=== PATIENT | male | born 1985 | race Caucasian/White ===

== ENCOUNTER 2021-08-18 09:29 | Outpatient (CLI) | payer OTHER, SELFPAY ==
--- NOTE | ~2021-08-18 | MR_ITS ---
EXAMINATION: MR ankle LT wo con DATE: 08/18/2021 10:30 INDICATION: Lateral left ankle pain post trauma one year prior. TECHNIQUE: Magnetic resonance imaging (MRI) of the left ankle was performed without intravenous contr ast. Sequences included sagittal, coronal, and axial proton-density weighted fast spin echo without a nd with fat saturation. COMPARISON: None. FINDINGS: Medial ankle ligaments: Deep and superficial deltoid ligaments as well as the spring ligament are normal. Lateral ankle ligaments: The anterior and posterior inferior tibiofibular ligaments are normal. The anterior talofibular, calc aneofibular and posterior talofibular ligaments are normal. Tendons: Achilles tendon is normal. The peroneus longus and brevis tendons are normal. The tibialis anterior a nd extensor hallucis longus and extensor digitorum longus tendons are normal. The tibialis posterior, flexor digitorum longus and flexor hallucis longus tendons are normal. Plantar fascia: Small plantar calcaneal spur at the origin of the otherwise normal plantar aponeurosis. No surroundin g edema to suggest acute plantar fasciitis. Bones/other: There is nonuniform joint space narrowing with partial thickness cartilage loss with some chondral macedo rface regularity at the tibiotalar articulation. Small marginal osteophytes along the anterior aspect of the tibial plafond and with subarticular edema-like signal change surrounding small region of mil d subarticular cystlike changes at the anterolateral aspect of the tibial plafond and. Remaining join t spaces appear relatively preserved. Fluid: Likely reactive small joint effusion and mild synovitis at the left ankle. IMPRESSION: 1. 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 Reviewed, dictated and finalized at location A. IMPRESSION: 1. 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
== END 2021-08-18 09:30 | disposition home or self-care (01) ==
LOC: CHSIMG 09:32
PROVIDERS: PCP Physician Assistant; Visit Provider Physician Assistant
DX: M25.572 Pain in left ankle and joints of left foot (principal)
CPT/HCPCS: 73721